=== PATIENT | female | born 1995 | race Caucasian/White ===

== ENCOUNTER 2018-04-13 16:28 | Inpatient (IN) | payer MEDICAID ==
[~2018-04-13] VITALS: Ht 177.8 cm; Wt 55.0 kg
[2018-04-13] MEDS ORDERED: ZOLPIDEM TARTRATE 10 MG TABLET PO PRN (17:00)
[2018-04-13] MEDS ORDERED: HALOPERIDOL 5 MG TABLET PO PRN (17:00)
[2018-04-13 18:00] VITALS: BP 124/68
[2018-04-13] MEDS: LORazepam 2 MG TABLET PO PRN (20:04)
[2018-04-13] MEDS ORDERED: MIRTAZAPINE 15 MG TABLET PO SCH (21:00)
[2018-04-14 08:14] VITALS: BP 116/71
[2018-04-14] MEDS: ARIPiprazole 5 MG TABLET PO SCH (08:22)
[2018-04-14 08:35] LABS: BASOPHILS % (AUTO) 0.4 % (0.0-2.0); EOSINOPHILS % (AUTO) 1.5 % (1.0-6.0); HEMATOCRIT 39.1 % (36-46); LYMPHOCYTES % (AUTO) 48.2 % (22.0-44.0); MEAN CORPUSCULAR HEMOGLOBIN 34.3 pg (26.0-34.0); MEAN CORPUSCULAR HGB CONC 35.9 G/dL (31.0-37.0); MEAN CORPUSCULAR VOLUME 96 fL (80-100); MONOCYTES # (AUTO) 0.6 K/uL (0.1-1.0); MONOCYTES % (AUTO) 10.3 % (2.0-9.0); NEUTROPHILS # (AUTO) 2.5 K/uL (1.8-7.7); NEUTROPHILS % (AUTO) 39.6 % (40.0-70.0); PLATELET COUNT (AUTO) 226 K/uL (150-450); RED BLOOD CELL COUNT(AUTO) 4.09 MIL/uL (4.00-5.20); RED CELL DISTRIBUTION WIDTH 12.9 % (11.5-14.5)
[2018-04-14 09:22] LABS: ALANINE AMINOTRANSFERASE 22 U/L (12-78); ALBUMIN 3.9 g/dL (3.4-5.0); ALKALINE PHOSPHATASE 36 U/L (46-116); ANION GAP 9 mmol/L (8-16); ASPARTATE AMINOTRANSFERASE 14 U/L (15-37); BILIRUBIN,TOTAL 0.9 mg/dL (0.1-1.0); CALCIUM, TOTAL 8.3 mg/dL (8.8-10.5); CARBON DIOXIDE 25 mmol/L (22-29); CHLORIDE 106 mmol/L (98-107); CHOL/HDL RATIO 2.4 (3.9-5.7); CHOLESTEROL 176 mg/dL (131-200); CREATININE 0.67 mg/dL (0.60-1.30); FREE T4 (FREE THYROXINE) 0.84 ng/dL (0.76-1.46); GLOMERULAR FILTR. RATE CALC > 60 mL/min (>60); GLUCOSE,RANDOM 85 mg/dL (70-110); HCG,QUANTITATIVE < 1 mIU/mL (0-6); HDL CHOLESTEROL 73 mg/dL (40-60); LDL CHOL (CALC.) 92 mg/dL (0-130); POTASSIUM 4.3 mmol/L (3.5-5.1); SODIUM SERUM 140 mmol/L (136-145); THYROID STIMULATING HORMONE 5.02 uIU/mL (0.36-3.74); TRIGLYCERIDES 56 mg/dL (15-150); UREA NITROGEN, BLOOD 12 mg/dL (7-18)
[2018-04-14] MEDS: LORazepam 2 MG TABLET PO PRN (18:06)
[2018-04-14] MEDS: MAGNESIUM HYDROXIDE SUSPENSION 30 ML UDCUP PO PRN (18:07)
[2018-04-14 18:51] VITALS: BP 132/75
[2018-04-14] MEDS ORDERED: MIRTAZAPINE 30 MG TABLET PO SCH (21:00)
[2018-04-15] MEDS: LEVOTHYROXINE SODIUM 25 MCG TABLET PO SCH (06:14)
[2018-04-15 06:21] VITALS: BP 100/62
[2018-04-15] MEDS: ARIPiprazole 5 MG TABLET PO SCH (08:30)
[2018-04-15 08:35] VITALS: BP 101/72
[2018-04-15] MEDS ORDERED: IBUPROFEN 400 MG TABLET PO PRN (11:15)
[2018-04-15] MEDS ORDERED: ALBUTEROL SULFATE HFA 90 MCG/PUFF 8 GM INHALER IH PRN (11:15)
[2018-04-15] MEDS ORDERED: DOCUSATE SODIUM 100 MG CAPSULE PO PRN (11:15)
[2018-04-15] MEDS ORDERED: ONDANSETRON HCL 4 MG TABLET PO PRN (11:15)
[2018-04-15] MEDS ORDERED: PETROLATUM,WHITE 71 GM JELLY TP PRN (11:15)
[2018-04-15] MEDS ORDERED: ACETAMINOPHEN 325 MG TABLET PO PRN (11:15)
[2018-04-15] MEDS ORDERED: MAGNESIUM HYDROXIDE SUSPENSION 30 ML UDCUP PO PRN (11:15)
[2018-04-15] MEDS ORDERED: MAG HYDROX/AL HYDROX/SIMETH ES 30 ML SUSPENSION UDCUP PO PRN (11:15)
[2018-04-15] MEDS ORDERED: MAGNESIUM CITRATE 300 ML ORAL SOLUTION PO PRN (12:15)
[2018-04-15] MEDS: MAGNESIUM HYDROXIDE SUSPENSION 30 ML UDCUP PO PRN (12:19)
[2018-04-15 16:25] VITALS: BP 106/66
[2018-04-15] MEDS: MIRTAZAPINE 15 MG TABLET PO SCH (21:10)
[2018-04-16] MEDS: LEVOTHYROXINE SODIUM 25 MCG TABLET PO SCH (06:39)
[2018-04-16 07:19] VITALS: BP 102/66
[2018-04-16] MEDS: ARIPiprazole 5 MG TABLET PO SCH (08:16)
[2018-04-16 08:55] VITALS: BP 118/61
[2018-04-16] MEDS: MAGNESIUM HYDROXIDE SUSPENSION 30 ML UDCUP PO PRN (13:29)
[2018-04-16] MEDS: LORazepam 2 MG TABLET PO PRN (17:48)
[2018-04-16 20:12] VITALS: BP 126/88
[2018-04-16] MEDS: MIRTAZAPINE 15 MG TABLET PO SCH (21:10)
[2018-04-17 06:37] VITALS: BP 101/62
[2018-04-17] MEDS: LEVOTHYROXINE SODIUM 25 MCG TABLET PO SCH (06:42)
[2018-04-17 08:22] VITALS: BP 108/72
[2018-04-17] MEDS: ARIPiprazole 5 MG TABLET PO SCH (09:19)
[2018-04-17] MEDS: LORazepam 2 MG TABLET PO PRN (09:19)
[2018-04-17 16:36] VITALS: BP 112/76
[2018-04-17] MEDS: MIRTAZAPINE 15 MG TABLET PO SCH (20:20)
[2018-04-18 06:24] VITALS: BP 110/78
[2018-04-18] MEDS: LEVOTHYROXINE SODIUM 25 MCG TABLET PO SCH (06:38)
[2018-04-18 08:20] VITALS: BP 105/65
[2018-04-18] MEDS: ARIPiprazole 5 MG TABLET PO SCH (08:46)
[2018-04-18 16:10] VITALS: BP 106/80
[2018-04-18] MEDS: LORazepam 2 MG TABLET PO PRN (17:35)
[2018-04-18] MEDS: MIRTAZAPINE 15 MG TABLET PO SCH (20:23)
[2018-04-18] MEDS ORDERED: MIRT30 PO (22:31)
[2018-04-18] MEDS ORDERED: ARIP5TAB8 PO (22:31)
[2018-04-18] MEDS ORDERED: LEVO25TA9 PO (22:32)
[2018-04-19 06:14] VITALS: BP 112/74
[2018-04-19] MEDS: LEVOTHYROXINE SODIUM 25 MCG TABLET PO SCH (06:31)
[2018-04-19] MEDS: ARIPiprazole 5 MG TABLET PO SCH (08:01)
[2018-04-19 08:17] VITALS: BP 100/65
== END 2018-04-19 13:15 | disposition home or self-care (01) | DRG 751 ==
LOC: B3A 17:02
PROVIDERS: ADMIT Psychiatry & Neurology Psychiatry; ATTEND Psychiatry & Neurology Psychiatry
DX: F33.3 Major depressive disorder, recurrent, severe with psychotic symptoms (principal); E83.51 Hypocalcemia; R45.851 Suicidal ideations; E03.9 Hypothyroidism, unspecified; F41.9 Anxiety disorder, unspecified; G47.00 Insomnia, unspecified; Z79.899 Other long term (current) drug therapy; Z81.8 Family history of other mental and behavioral disorders; Z91.19 Patient's noncompliance with other medical treatment and regimen; Z91.5 Personal history of self-harm
CPT/HCPCS: 83036; 84439; 84443; Q0162